=== PATIENT | female | born 1945 | race American Indian/Alaskan Native ===

== ENCOUNTER 2017-05-24 15:50 | Outpatient (CLI) | payer MEDICARE, OTHER ==
--- NOTE | 2017-05-25 11:34 | Vascular Lab Report ---
LOWER EXTREMITY ARTERIAL DUPLEX: REASON FOR EXAM: Left leg claudication. COMMENTS ON THE RIGHT: Triphasic waveforms are seen distally. COMMENTS ON THE LEFT: Triphasic waveforms are seen proximally. Triphasic waveforms are seen distally. No significant velocity gradients are identified. No focal significant plaque is identified. Findings are consistent with normal perfusion. Findings are consistent with the ability to heal distal wounds. IMPRESSION: LEFT:Essentially normal arterial flow.
== END 2017-05-24 15:51 | disposition home or self-care (01) ==
LOC: VAS 15:50
PROVIDERS: ATTEND Internal Medicine
DX: I70.212 Atherosclerosis of native arteries of extremities with intermittent claudication, left leg (principal)

== ENCOUNTER 2019-04-17 11:48 | Emergency (ER) | payer MEDICARE, OTHER ==
--- NOTE | 2019-04-17 12:09 | Event Note ---
ED Screening Note Date of service: 04/17/19 Time: 12:07 ED Screening Note: This is a 73 y.o. F. that presents to the ER with left sided facial pain that is progressing for weeks. Patient reports history of cervical arthritis and HTN This initial assessment/diagnostic orders/clinical plan/treatment(s) is/are subject to change based on patients health status, clinical progression and re- assessment by fellow clinical providers in the ED. Further treatment and workup at subsequent clinical providers discretion. Patient/guardian urged not to elope from the ED as their condition may be serious if not clinically assessed and managed. Initial orders include:
[2019-04-17] MEDS ORDERED: NACL 0.9% 1000 ML 1,000 ML IV ONE (12:55)
[2019-04-17] MEDS ORDERED: SOLU-Medrol IV ONE (12:55)
[2019-04-17] MEDS ORDERED: FLEXERIL PO ONE (12:55)
[2019-04-17] MEDS ORDERED: MORPHINE IV ONE (12:56)
[2019-04-17 13:43] LABS: Basophils # (Auto) 0.1 K/mm3 (0.0-0.1); Basophils % (Auto) 1.2 % (0.0-1.8); Eosinophils % (Auto) 0.6 % (0.0-4.3); Hematocrit 37.8 % (30.3-42.9); Hemoglobin 12.4 gm/dl (10.1-14.3); Lymphocytes # (Auto) 3.5 K/mm3 (1.2-5.4); Lymphocytes % (Auto) 48.9 % (13.4-35.0); Mean Corpuscular HGB Conc 33 % (30-34); Mean Corpuscular Volume 89 fl (79-97); Monocytes # (Auto) 0.4 K/mm3 (0.0-0.8); Monocytes % (Auto) 5.4 % (0.0-7.3); Red Blood Count 4.26 M/mm3 (3.65-5.03); Red Cell Distribution Width 15.4 % (13.2-15.2)
[2019-04-17 14:33] LABS: Platelet Count 344 K/mm3 (140-440)
[2019-04-17 14:43] LABS: BUN/Creatinine Ratio 13; Blood Urea Nitrogen 12 mg/dL (7-17); Calcium 9.8 mg/dL (8.4-10.2); Hemolysis Index 72
--- NOTE | 2019-04-17 15:16 | Emergency Department Report ---
ED General Adult HPI - General Chief complaint: Headache Stated complaint: HEADACHE Time Seen by Provider: 04/17/19 12:07 Source: patient Mode of arrival: Ambulatory Limitations: No Limitations - History of Present Illness Initial comments: patient is a 73-year-old female presents emergency room with complaints of left- sided neck pain and left-sided facial pain that began 2 weeks ago. States that occasionally her vision in her left eye feels blurry. she denies any vision changes currently. She denies any numbness, weakness, speech disturbance, gait disturbance, dizziness, chest pain. pt states that she was seen at [place] on and had a CT head which was normal and was referred to neurology. States that she is also had a CT of the cervical spine which showed cervical arthritis per the patient. She has been taking Excedrin for her discomfort. She has a past medical history of hypertension. Denies any allergies to medications. Severity scale (0 -10): 8 - Related Data Home Medications Medication Instructions Recorded Confirmed Last Taken ALPRAZolam [Xanax TAB] 0.5 mg PO BID PRN 11/26/15 04/17/19 04/16/19 Diclofenac Sodium 25 mg PO QDAY 11/26/15 04/17/19 04/16/19 Losartan/Hydrochlorothiazide 1 tab PO QDAY 11/26/15 04/17/19 04/16/19 [Hyzaar 100-25 TAB] traMADol [Ultram 50 MG tab] 50 mg PO Q6HR PRN 11/26/15 04/17/19 04/16/19 Previous Rx's Medication Instructions Recorded Last Taken Type Naproxen [EC-Naproxen] 500 mg PO BID PRN #14 tablet. 04/17/19 Unknown Rx tiZANidine [Zanaflex 4mg TAB] 4 mg PO QHS PRN #12 tablet 04/17/19 Unknown Rx Allergies Allergy/AdvReac Type Severity Reaction Status Date / Time No Known Allergies Allergy Unverified 10/31/13 11:49 ED Review of Systems ROS: Stated complaint: HEADACHE Other details as noted in HPI Comment: All other systems reviewed and negative ED Past Medical Hx - Past Medical History Previous Medical History?: Yes Hx Hypertension: Yes (FOR 11 YRS, DR. GRUBBS- PCP) Hx Arthritis: Yes (RIGHT HAND) Hx HIV: No Additional medical history: Gastritis - Surgical History Past Surgical History?: Yes Hx Cholecystectomy: Yes ([place]. [place] 2002) Hx Appendectomy: Yes (AGE 16) Additional Surgical History: Hyst. - Social History Smoking Status: Never Smoker Substance Use Type: None - Medications Home Medications: Home Medications Medication Instructions Recorded Confirmed Last Taken Type ALPRAZolam [Xanax TAB] 0.5 mg PO BID PRN 11/26/15 04/17/19 04/16/19 History Diclofenac Sodium 25 mg PO QDAY 11/26/15 04/17/19 04/16/19 History Losartan/Hydrochlorothiazide 1 tab PO QDAY 11/26/15 04/17/19 04/16/19 History [Hyzaar 100-25 TAB] traMADol [Ultram 50 MG tab] 50 mg PO Q6HR PRN 11/26/15 04/17/19 04/16/19 History Naproxen [EC-Naproxen] 500 mg PO BID PRN #14 tablet. 04/17/19 Unknown Rx tiZANidine [Zanaflex 4mg TAB] 4 mg PO QHS PRN #12 tablet 04/17/19 Unknown Rx ED Physical Exam - General Limitations: No Limitations General appearance: alert, in no apparent distress - Head Head exam: Present: atraumatic, normocephalic, other (no TTP or edema of the temporal artery bilaterally) - Eye Eye exam: Present: normal appearance - ENT ENT exam: Present: mucous membranes moist - Neck Neck exam: Present: full ROM, other (small amount of edema to the left side of the neck, no carotid bruit, no midline C-spine tenderness, no step offs, no deformities). Absent: tenderness - Respiratory Respiratory exam: Present: normal lung sounds bilaterally. Absent: respiratory distress, wheezes, rales, rhonchi, stridor, chest wall tenderness, accessory muscle use, decreased breath sounds, prolonged expiratory - Cardiovascular Cardiovascular Exam: Present: regular rate, normal rhythm, normal heart sounds. Absent: systolic murmur, diastolic murmur, rubs, gallop - Neurological Exam Neurological exam: Present: alert, oriented X3, CN II-XII intact, normal gait, other (normal finger to nose, normal heel to leger, 5/5 strength in the BUE/BLE, sensation intact throughout, pulses intact throughout, no focal neuro deficit). Absent: motor sensory deficit - Psychiatric Psychiatric exam: Present: normal affect, normal mood - Skin Skin exam: Present: warm, dry, intact ED Course Vital Signs 04/17/19 04/17/19 04/17/19 12:07 15:51 17:26 Temperature 99 F 98.7 F Pulse Rate 61 57 L Respiratory 18 17 16 Rate Blood Pressure 174/55 Blood Pressure 190/73 [Left] O2 Sat by Pulse 99 100 Oximetry ED Medical Decision Making - Lab Data Result diagrams: 04/17/19 13:24 04/17/19 13:24 - Radiology Data Radiology results: report reviewed CT neck w con INDICATION / CLINICAL INFORMATION: 73 years Female; left sided neck discomfort with swelling. TECHNIQUE: Contiguous thin cut axial images obtained through the neck following IV contrast. Sagittal and coronal reconstructions performed by the technologist. All CT scans at this location are performed using CT dose reduction for ALARA by means of automated exposure control. COMPARISON: None available. FINDINGS: MUCOSAL SPACE: The motion degrades the image quality at. However, no definitive focal lesions are seen involving the pharyngeal or laryngeal structures. The epiglottis is appropr iate in size at. The piriform sinuses are pneumatized. LYMPH NODES: There a few scattered cervical lymph nodes, the most prominent within the jugulodigastric regions measuring approximately 0.77 m in greatest transverse dimension. The nodes are nonspecific though may be a reactive. SALIVARY GLANDS: The parotid glands demonstrate symmetric attenuation without focal calcification. There is suggestion of component of mild ductal dilatation involving the submandibular glands bilaterally. However, no radiopaque calculi are seen along the floor of mouth. No significant surrounding inflammatory changes are identified. THYROID GLAND: Unremarkable. PARANASAL SINUSES: The visualized paranasal sinuses are clear. SPINE: There are multilevel degenerative changes involving the cervical spine, most likely from C1 to 2 C4-5. VASCULAR STRUCTURES: This mild atherosclerotic calcification involving the carotid bifurcations bilaterally. Surrounding soft tissues are otherwise grossly normal. IMPRESSION: 1. There is no clear CT evidence of significant inflammatory changes involving the soft tissues of the neck at. 2. There appears be mild symmetric dilatation of the ducts within the submandibular glands. However, no radiopaque calculi are seen along the visualized floor of mouth. Signer Name: Lamin Chiang MD Signed: 04/17/2019 4:58 PM Workstation Name: [id number] Transcribed By: MR Dictated By: Lamin Chiang MD Electronically Authenticated By: Lamin Chiang MD Signed Date/Time: 04/17/19 1619 - Medical Decision Making patient is a 73-year-old female presents emergency room with complaints of left- sided neck pain and left-sided facial pain that began 2 weeks ago. States that occasionally her vision in her left eye feels blurry. she denies any vision changes currently. She denies any numbness, weakness, speech disturbance, gait disturbance, dizziness, chest pain. pt states that she was seen at [place] on and had a CT head which was normal and was referred to neurology. States that she is also had a CT of the cervical spine which showed cervical arthritis per the patient. She has been taking Excedrin for her discomfort. She has a past medical history of hypertension. Denies any allergies to medications. vitals with elevated blood pressure, pt states she did not take her BP medication today. on exam: no TTP or edema of the temporal artery bilaterally, small amount of edema to the left side of the neck, no carotid brui t, no midline C-spine tenderness, no step offs, no deformities, no focal neuro deficits. labs are stable. TSH is normal. CT neck with contrast: 1. There is no clear CT evidence of significant inflammatory changes involving the soft tissues of the neck at. 2. There appears be mild symmetric dilatation of the ducts within the submandibular glands. However, no radiopaque calculi are seen along the visualized floor of mouth. discussed findings with pt. will have pt follow up with neurology for further evaluation. pts discomfort treated while in the emergency department and improved. pt given short course of Zanaflex and naproxen. advised pt to please take medication as prescribed as needed. do not Drive or operate heavy machinery while taking muscle relaxer. please follow-up with a neurologist in the next 2-3 days. Use ice packs, heating pads, rest, epsom salt bath. follow up with a primary care doctor in the next 2-3 days. - Differential Diagnosis disc herniation, thyroid issue, carotid stenosis, temporal arteritis, strai Critical care attestation.: If time is entered above; I have spent that time in minutes in the direct care of this critically ill patient, excluding procedure time. ED Disposition Clinical Impression: Neck pain on left side, Left-sided face pain Disposition: DC-01 TO HOME OR SELFCARE Is pt being admited?: No Does the pt Need Aspirin: No Condition: Stable Additional Instructions: please take medication as prescribed as needed. Drive or operate heavy machinery while taking muscle relaxer. please follow-up with a neurologist in the next 2-3 days. Use ice packs, heating pads, rest, epsom salt bath. follow up with a primary care doctor in the next 2-3 days. Prescriptions: tiZANidine [Zanaflex 4mg TAB] 4 mg PO QHS PRN #12 tablet PRN Reason: Muscle Spasm Naproxen [EC-Naproxen] 500 mg PO BID PRN #14 tablet. PRNader Reason: pain Referrals: KRISTINE LARRY MD [Referring] - 2-3 Days ANABELLE MOORE MD [Staff Physician] - 2-3 Days Time of Disposition: 17:10 Print Language: IVORIAN
--- NOTE | 2019-04-17 17:02 | Cat Scan Report ---
CT neck w con INDICATION / CLINICAL INFORMATION: 73 years Female; left sided neck discomfort with swelling. TECHNIQUE: Contiguous thin cut axial images obtained through the neck following IV contrast. Sagittal and olmstead l reconstructions performed by the technologist. All CT scans at this location are performed using CT dose reduction for ALARA by means of automated exposure control. COMPARISON: None available. FINDINGS: MUCOSAL SPACE: The motion degrades the image quality at. However, no definitive focal lesions are see n involving the pharyngeal or laryngeal structures. The epiglottis is appropriate in size at. The pir iform sinuses are pneumatized. LYMPH NODES: There a few scattered cervical lymph nodes, the most prominent within the jugulodigastri c regions measuring approximately 0.77 m in greatest transverse dimension. The nodes are nonspecific though may be a reactive. SALIVARY GLANDS: The parotid glands demonstrate symmetric attenuation without focal calcification. Th ere is suggestion of component of mild ductal dilatation involving the submandibular glands bilateral ly. However, no radiopaque calculi are seen along the floor of mouth. No significant surrounding infl ammatory changes are identified. THYROID GLAND: Unremarkable. PARANASAL SINUSES: The visualized paranasal sinuses are clear. SPINE: There are multilevel degenerative changes involving the cervical spine, most likely from C1 to 2 C4-5. VASCULAR STRUCTURES: This mild atherosclerotic calcification involving the carotid bifurcations bilat erally. Surrounding soft tissues are otherwise grossly normal. IMPRESSION: 1. There is no clear CT evidence of significant inflammatory changes involving the soft tissues of th e neck at. 2. There appears be mild symmetric dilatation of the ducts within the submandibular glands. However, no radiopaque calculi are seen along the visualized floor of mouth. Signer Name: Lamin Chiang MD Signed: 04/17/2019 4:58 PM Workstation Name: [id number]
[2019-04-17 17:27] VITALS: BP 190/73
== END 2019-04-17 17:36 | disposition home or self-care (01) ==
LOC: ED 11:48
DX: M54.2 Cervicalgia (principal); R51 Headache; I10 Essential (primary) hypertension; Z90.49 Acquired absence of other specified parts of digestive tract; Z79.899 Other long term (current) drug therapy; Z90.710 Acquired absence of both cervix and uterus
CPT/HCPCS: 36415; 70491; 80048; 84443; 85025; 96374; 96375; 99284; J2270; J2930; J7030; Q9967

== ENCOUNTER 2020-04-18 12:02 | Day surgery (SDC) | payer MEDICARE, OTHER ==
[2020-04-18 12:54] VITALS: BP 156/75
[2020-04-18] MEDS ORDERED: LIDOCAINE (1%) 10 MG/1 ML VIAL 20 ML MDV ONE ×2 (14:26→14:59)
[2020-04-18] MEDS ORDERED: BUPIVACAINE/PF (0.5%) 5 MG/1 ML 30 ML VIAL INFILTRATI ONE ×2 (14:26→14:55)
[2020-04-18] MEDS ORDERED: LIDOCAINE (1%) 10 MG/1 ML VIAL 20 ML MDV INFILTRATI ONE (14:55)
--- NOTE | 2020-04-18 16:01 | XRay Report ---
LEFT KNEE 2 VIEWS INDICATION: LT KNEE PAIN. COMPARISON: None. IMPRESSION: 20 seconds of fluoroscopy time was provided by radiology during radiofrequency ablation by orthopedics. 2 fluoroscopic images of the left knee are presented demonstrating needle placement. Please correlate with the procedural report as needed. Signer Name: Eder Mills Jr, MD Signed: 04/18/2020 3:57 PM Workstation Name: [id number]
--- NOTE | 2020-04-22 16:51 | Procedure Note ---
Date of procedure: 04/18/20 Pre-op diagnosis: Left knee pain Post-op diagnosis: same Procedure: [Left] Geniculate Nerve Block under C-arm fluroscopy procedure The patient taken to the operating room where she was place on the table supine with padded triangular pad placed along the potileal fossa. The [left] knee prepped and draped in usual sterile fashion. 22-gauge spinal needle used to locate areas for injection, the medial and lateral supracondylar ridges, 2 cm proximal to the superior pole of the patella as well as the medial border of the proximal tibia. These areas were anesthized using lidocaine 1% followed by placement of spinal needle near the medial, and lateral geniculate nerves. A mixture of marcaine and lidocaine injected into the deeper structures. There were no complications noted and he tolerated well. Anesthesia: local Surgeon: KELLIE PINEDA Estimated blood loss: minimal Pathology: none Condition: stable Disposition: observation
== END 2020-04-18 15:23 | disposition home or self-care (01) ==
LOC: OR 12:02
PROVIDERS: ATTEND Orthopaedic Surgery
DX: M25.562 Pain in left knee (principal); E78.00 Pure hypercholesterolemia, unspecified; I10 Essential (primary) hypertension; M19.90 Unspecified osteoarthritis, unspecified site; F32.9 Major depressive disorder, single episode, unspecified; F41.9 Anxiety disorder, unspecified; Z79.899 Other long term (current) drug therapy; Z87.891 Personal history of nicotine dependence; Z98.49 Cataract extraction status, unspecified eye; Z90.49 Acquired absence of other specified parts of digestive tract; Z90.710 Acquired absence of both cervix and uterus; Z98.890 Other specified postprocedural states; Z86.2 Personal history of diseases of the blood and blood-forming organs and certain disorders involving the immune mechanism